=== PATIENT | male | born 1955 | race African-American/Black ===

== ENCOUNTER 2019-05-14 15:39 | Outpatient (CLI) | payer OTHER ==
[2019-05-14 16:17] LABS: ABSOLUTE RETICS # AUTO 0.117 10^6/uL (0.020-0.110); BASOPHILS % (AUTO) 0.3 %; EOSINOPHILS % (AUTO) 1.1 %; HGB - HEMOGLOBIN 8.2 g/dL (14.0-18.0); LYMPHOCYTES # (AUTO) 1.3 10^3/uL (1.5-3.5); LYMPHOCYTES % (AUTO) 35.5 %; MEAN CORPUSCULAR HEMOGLOBIN 24.8 pg (27.0-31.0); MEAN CORPUSCULAR VOLUME 85.8 fL (80.0-94.0); MONOCYTES # (AUTO) 0.3 10^3/uL (0.0-1.0); MONOCYTES % (AUTO) 6.9 %; NEUTROPHILS % (AUTO) 55.9 %; PLT - PLATELET COUNT 242 10^3/uL (130-450); RED CELL DISTRIBUTION WIDTH 16.5 % (12.0-15.0); WHITE BLOOD COUNT 3.6 x10^3/uL (4.8-10.8)
[2019-05-14 17:41] LABS: PLATELET ESTIMATE, MANUAL NORMAL (130-450,000) (NORMAL)
[2019-05-14 17:42] LABS: PLATELET MORPHOLOGY NORMAL APPEARANCE (NORMAL)
[2019-05-16 11:28] LABS: HAPTOGLOBIN 73 mg/dL (43-212)
[2019-05-16 22:49] LABS: GLUCOSE-6-PHOSPHATE DEHYDROG >21.0 U/g Hgb (7.0-20.5)
== END 2019-05-14 15:40 | disposition home or self-care (01) ==
LOC: LAB 15:39
PROVIDERS: ATTEND Internal Medicine
DX: D50.9 Iron deficiency anemia, unspecified (principal)
CPT/HCPCS: 36415; 82955; 83010; 83615; 85025; 85045; 85651; 86880

== ENCOUNTER 2019-05-26 11:54 | Outpatient (CLI) | payer OTHER ==
[2019-05-26] MEDS ORDERED: IOVERSOL 320 100 ML VIAL IVP ONE ×2 (12:09→13:46)
[2019-05-26] MEDS ORDERED: IOVERSOL 320 50 ML VIAL ONE (12:09)
[2019-05-26] MEDS ORDERED: IOVERSOL 320 50 ML VIAL PO ONE (13:46)
--- NOTE | 2019-05-27 02:47 | CT Report ---
Reason: IRON DEFICIENCY ANEMIA Procedure Date: 05/26/2019 Accession Number: [id number] / [id number] Procedure: CT - Abdomen/Pelvis W CPT Code: Final Report FULL RESULT: EXAM: CT ABDOMEN AND PELVIS EXAM DATE: 05/26/2019 01:42 PM. CLINICAL HISTORY: IRON DEFICIENCY ANEMIA. COMPARISONS: None. TECHNIQUE: Routine helical CT imaging was performed through the abdomen and pelvis. IV contrast: OPTI 320 100ML. Enteric contrast: Yes. Reconstructions: Coronal and sagittal. In accordance with CT protocol optimization, one or more of the following dose reduction techniques were utilized for this exam: automated exposure control, adjustment of mA and/or KV based on patient size, or use of iterative reconstructive technique. FINDINGS: Lung Bases: Unremarkable. Liver: Normal. No masses. Gallbladder/Bile Ducts: Unremarkable. Spleen: Normal. Pancreas: Normal. Adrenal Glands: Normal. Kidneys: Normal. No masses or hydronephrosis. Peritoneal Cavity/Bowel: Normal. No free fluid, free air or adenopathy. No masses or acute inflammatory process. The appendix is well visualized and normal. Pelvic Organs: Normal. The bladder and visualized pelvic organs are within normal limits. Vasculature: No aneurysms or other significant abnormality. Bones: No significant abnormality. Other: None. IMPRESSION: Normal abdomen and pelvis CT. No evident etiology for patient's anemia. RADIA
--- NOTE | 2019-05-27 03:43 | CT Report ---
Reason: IRON DEFICIENCY ANEMIA Procedure Date: 05/26/2019 Accession Number: [id number] / [id number] Procedure: CT - CHEST W CPT Code: Final Report FULL RESULT: EXAM: CT CHEST EXAM DATE: 05/26/2019 01:42 PM. CLINICAL HISTORY: IRON DEFICIENCY ANEMIA. COMPARISONS: None. TECHNIQUE: Routine helical CT imaging was performed through the chest. IV contrast: 100 mL of Optiray 320. Reconstructions: Coronal and sagittal. In accordance with CT protocol optimization, one or more of the following dose reduction techniques were utilized for this exam: automated exposure control, adjustment of mA and/or KV based on patient size, or use of iterative reconstructive technique. FINDINGS: Lungs/Pleura: No nodules, bronchial thickening, consolidation, or edema. Pulmonary vasculature is normal. No pericardial or pleural effusion. No pneumothorax. Mediastinum: Normal. No adenopathy or masses. The heart and great vessels are normal. Bones: Mild degenerative changes. Visualized Abdomen: Please refer to separate CT. Other: None. IMPRESSION: Normal chest CT. RADIA
== END 2019-05-26 11:55 | disposition home or self-care (01) ==
LOC: DI 11:54
PROVIDERS: ATTEND Internal Medicine Gastroenterology
DX: D50.9 Iron deficiency anemia, unspecified (principal)
CPT/HCPCS: 71260; 74177; Q9967

== ENCOUNTER 2019-06-15 06:56 | Day surgery (SDC) | payer OTHER ==
[~2019-06-15 06:56] MED LIST: SODIUM/POTASSIUM/MAG SULFATES 354 ML PREP KIT PO SCH
[2019-06-15] MEDS ORDERED: LACTATED RINGERS 1,000 ML IV ONE (07:09)
[2019-06-15] MEDS ORDERED: LIDO GARGLE 30 ML BOTTLE ONE (07:46)
[2019-06-15] MEDS ORDERED: MIDAZOLAM 2 MG/2 ML VIAL IVP ONE (08:02)
[2019-06-15] MEDS ORDERED: fentaNYL 250 MCG/5 ML VIAL IVP ONE (08:02)
[2019-06-15] MEDS ORDERED: LIDO GARGLE 30 ML BOTTLE PO ONE (08:06)
[2019-06-15 09:31] VITALS: BP 112/65
== END 2019-06-15 06:57 | disposition home or self-care (01) ==
LOC: SDS 06:56
PROVIDERS: ATTEND Internal Medicine Gastroenterology
PROC: 0DBP8ZZ Excision of Rectum, Via Natural or Artificial Opening Endoscopic (ICD-10-PCS; 2019-06-15)
PROC: 0DB98ZX Excision of Duodenum, Via Natural or Artificial Opening Endoscopic, Diagnostic (ICD-10-PCS; 2019-06-15)
PROC: 0DB78ZX Excision of Stomach, Pylorus, Via Natural or Artificial Opening Endoscopic, Diagnostic (ICD-10-PCS; 2019-06-15)
PROC: 0DBH8ZZ Excision of Cecum, Via Natural or Artificial Opening Endoscopic (ICD-10-PCS; principal; 2019-06-15 08:15)
PROC: 0DBN8ZZ Excision of Sigmoid Colon, Via Natural or Artificial Opening Endoscopic (ICD-10-PCS; 2019-06-15 08:15)
DX: D50.9 Iron deficiency anemia, unspecified (principal); D12.0 Benign neoplasm of cecum; K63.5 Polyp of colon; K62.1 Rectal polyp; N40.0 Benign prostatic hyperplasia without lower urinary tract symptoms; J45.909 Unspecified asthma, uncomplicated; K29.50 Unspecified chronic gastritis without bleeding; K31.9 Disease of stomach and duodenum, unspecified; Z87.891 Personal history of nicotine dependence
CPT/HCPCS: 43239; 45380; A9270; J3010; J7120

== ENCOUNTER 2019-10-16 09:30 | Outpatient (CLI) | payer OTHER ==
[2019-10-16 09:48] LABS: BASOPHILS % (AUTO) 0.5 %; EOSINOPHILS # (AUTO) 0.1 10^3/uL (0.0-0.7); EOSINOPHILS % (AUTO) 2.2 %; HGB - HEMOGLOBIN 12.7 g/dL (14.0-18.0); LYMPHOCYTES # (AUTO) 1.2 10^3/uL (1.5-3.5); LYMPHOCYTES % (AUTO) 32.6 %; MEAN CORPUSCULAR HEMOGLOBIN 30.8 pg (27.0-31.0); MEAN CORPUSCULAR HGB CONC 32.6 g/dL (32.0-36.0); MEAN CORPUSCULAR VOLUME 94.4 fL (80.0-94.0); MEAN PLATELET VOLUME 11.9 fL (7.4-11.4); MONOCYTES # (AUTO) 0.3 10^3/uL (0.0-1.0); NEUTROPHILS % (AUTO) 55.4 %; PLT - PLATELET COUNT 156 10^3/uL (130-450); RED BLOOD COUNT 4.12 10^6/uL (4.70-6.10); RED CELL DISTRIBUTION WIDTH 16.3 % (12.0-15.0); WHITE BLOOD COUNT 3.7 x10^3/uL (4.8-10.8)
== END 2019-10-16 09:31 | disposition home or self-care (01) ==
LOC: LAB 09:30
PROVIDERS: ATTEND Physician Assistant
DX: D50.0 Iron deficiency anemia secondary to blood loss (chronic) (principal)
CPT/HCPCS: 36415; 85025

== ENCOUNTER 2022-10-29 10:47 | Outpatient (CLI) | payer OTHER ==
--- NOTE | 2022-10-29 13:01 | Ultrasound Report ---
PROCEDURE: Aorta Screening INDICATIONS: SCREENING FOR AAA, HISTORY OF SMOKING TECHNIQUE: Real time scanning was performed of the aorta and iliac arteries, with image documentatio n. COMPARISON: None. Correlation made to CT abdomen pelvis 05/26/2019 FINDINGS: Aorta: Proximal aortic diameter measures 2.5 x 2.2 cm. Mid-aorta measures 2.1 x 2.0 cm. Distal aor tic diameter is 2.0 x 2.0 cm. Iliac arteries: Right common iliac artery measures 1.3 x 1.3 cm. Left common iliac artery measures 1.2 x 1.3 cm. IMPRESSION: 1. Minimally ectatic proximal abdominal aorta, minimally increased in size compared to the prior cros s-sectional study. Repeat exam for surveillance at 5 years is recommended. Recommended intervals for follow-up imaging of ectatic aortas and abdominal aortic aneurysms, per ACR consensus guidelines: 2.5-2.9 cm: 5 years 3.0-3.4 cm: 3 years 3.5-3.9 cm: 2 years 4.0-4.4 cm: 1 year 4.5-4.9 cm: 6 months + endovascular referral 5.0-5.5 cm: 3-6 months + endovascular referral Reviewed by: Rachel Crutis MD on 10/29/2022 12:00 PM ALE[facility] Approved by: Rachel Curtis MD on 10/29/2022 12:00 PM ALEENA Station ID: [id number]
== END 2022-10-29 10:48 | disposition home or self-care (01) ==
LOC: DI 10:47
PROVIDERS: ATTEND Nurse Practitioner Primary Care
DX: Z13.6 Encounter for screening for cardiovascular disorders (principal); I77.811 Abdominal aortic ectasia; Z87.891 Personal history of nicotine dependence

== ENCOUNTER 2024-01-14 17:13 | Outpatient (CLI) | payer OTHER ==
--- NOTE | 2024-01-15 12:42 | Ultrasound Report ---
PROCEDURE: Extremity Soft Tissue Limited INDICATIONS: RT Hand and Rt knee cysts TECHNIQUE: Real-time scanning was performed of the right knee, with image documentation. COMPARISON: None. FINDINGS: Focused ultrasound examination of anterolateral aspect of right knee at the reported area of palpable lump shows an oval hypoechoic nodule within soft tissue measures 1 x 0.3 x 0.8 cm in size and show internal vascularity. IMPRESSION: Solid soft tissue nodule in anterolateral right knee with internal vascularity and measu res 1 x 0.3 x 0.8 cm in size and is suggestive of neoplasm of indeterminant etiology. The finding is not consistent with simple cyst. Consider excision for more definitive diagnosis. Reviewed by: Leonel Mejia MD on 01/15/2024 12:40 PM PDT Approved by: Leonel Mejia MD on 01/15/2024 12:40 PM PDT Station ID: [id number]
--- NOTE | 2024-01-15 12:43 | Ultrasound Report ---
PROCEDURE: Extremity Soft Tissue Limited INDICATIONS: R HAND AND R KNEE CYSTS TECHNIQUE: Real-time scanning was performed of the right hand, with image documentation. COMPARISON: None. FINDINGS: Focused ultrasound examination of right hand at patient's reported area of palpable lump n ear the lumbar aspect of base of fifth finger shows a 5 x 4 x 4 mm cystic structure within subcutaneo us soft tissue and show no internal vascularity. IMPRESSION: Finding likely represent a ganglion cyst in soft tissue over volar aspect of fifth MCP j oint. Reviewed by: Leonel Mejia MD on 01/15/2024 12:41 PM PDT Approved by: Leonel Mejia MD on 01/15/2024 12:41 PM PDT Station ID: [id number]
== END 2024-01-14 17:14 | disposition home or self-care (01) ==
LOC: DI 17:13
PROVIDERS: ATTEND Nurse Practitioner Primary Care
DX: R22.41 Localized swelling, mass and lump, right lower limb (principal); M25.841 Other specified joint disorders, right hand